=== PATIENT | male | born 1950 | race Caucasian/White ===

== ENCOUNTER 2017-08-05 09:54 | Day surgery (SDC) | payer MEDICARE, OTHER ==
[2017-07-31 22:07] VITALS: BMI 27.1
[~2017-08-05 09:54] MED LIST: LACTATED RINGERS 1,000 ML IV SCH; ONDANSETRON 4 MG/2 ML VIAL IVP PRN
[2017-08-05 11:01] VITALS: RESP 16; TEMP 96.8
[2017-08-05] MEDS ORDERED: LIDOCAINE 1% 20 ML VIAL (10MG/ML) FOR IV START INTRADERMA ONE (11:08)
[2017-08-05] MEDS ORDERED: PROPOFOL 10 MG/ML 20 ML VIAL IV ONE (11:24)
--- NOTE | 2017-08-05 11:50 | P.PCN ---
Date of Procedure: 08/05/17 Procedure(s) Performed: BRIEF HISTORY: Patient is a 67-year-old pleasant white male, scheduled for an elective colonoscopy as a part of evaluation of prior history of colon polyps. Last colonoscopy was 4 years ago. PROCEDURE PERFORMED: Colonoscopy with snare polypectomy. PREOPERATIVE DIAGNOSIS: History of colon polyps. IV sedation per Anesthesia. PROCEDURE: After informed consent was obtained, the patient, was brought into the endoscopy unit. IV sedation was administered by Anesthesia under continuous monitoring. Digital rectal examination was normal. Initially the Olympus CF- 160 flexible video colonoscope was then inserted in the rectum, gradually advanced into the cecum without any difficulty. Careful examination was performed as the scope was gradually being withdrawn. Ileocecal valve and the appendiceal orifice were visualized and appeared normal. Prep was excellent. Mucosa of the cecum, appeared normal. In the ascending colon there were 2 polyps measuring 1 minute in size both of which were removed by snare polypectomy. In the transverse colon there were 2 polyps measuring 5 mm and 1 cm in size removed by snare polypectomy. In the hepatic flexure there was a 5 mL polyp removed with snare polyp ectomy. The rest of the ascending colon, transverse colon, descending colon, sigmoid colon, and rectum appeared normal. In the distal rectum there was a 5 limited polyp removed by snare polypectomy. Retroflexion was performed in the rectum and no lesions were seen. The patient tolerated the procedure well. IMPRESSION: 1 cm 2 ascending colon polyp status post polypectomy 5 mm hepatic flexure polyp status post snare polypectomy 5 mm and 1 cm transverse colon polyp status post snare polypectomy. 5 mm distal rectal polyp status post polypectomy RECOMMENDATIONS: Findings of this examination were discussed with the patient as well as his family. He was advised to follow with the biopsy results. If the biopsy shows a tubular adenoma he can have a repeat colonoscopy in 3 years.
[2017-08-05 12:26] VITALS: BP 135/83; PULSE 58
== END 2017-08-05 12:37 | disposition home or self-care (01) ==
LOC: ORWHC2ENDO 09:54
PROVIDERS: ATTEND Internal Medicine Gastroenterology
DX: Z12.11 Encounter for screening for malignant neoplasm of colon (principal); D12.2 Benign neoplasm of ascending colon; D12.3 Benign neoplasm of transverse colon; D12.8 Benign neoplasm of rectum; Z86.010 Personal history of colon polyps; I10 Essential (primary) hypertension; K21.9 Gastro-esophageal reflux disease without esophagitis; Z79.82 Long term (current) use of aspirin; Z79.899 Other long term (current) drug therapy; Z72.0 Tobacco use
CPT/HCPCS: 88305; 45385; J2704

== ENCOUNTER → 2019-01-10 | Outpatient (CLI) | payer MEDICARE, OTHER ==
--- NOTE | 2019-01-10 08:10 | US ---
EXAMINATION TYPE: US duplex aorta DATE OF EXAM: 01/10/2019 COMPARISON: US 2014 CLINICAL HISTORY: Z13.9 Screening for AAA. EXAM MEASUREMENTS: Abdominal Aorta: Proximal: 2.3 x 2.3 cm Mid: 2.4 x 2.2 cm Distal: 1.8 x 1.9 cm Bifurcation: rt, 1.6 x 1.3 cm lt, 1.4 x 1.7 cm No evidence of abdominal aortic aneurysm. Mild atherosclerosis. IMPRESSION: No sonographic evidence of abdominal aortic aneurysm in the visualized portions of the ab dominal aorta. Mild atherosclerosis is seen throughout.
== END | disposition home or self-care (01) ==
LOC: RADUSWWP 07:29
PROVIDERS: ATTEND Family Medicine
DX: I70.0 Atherosclerosis of aorta (principal)
CPT/HCPCS: 93979

== ENCOUNTER → 2021-04-24 | Outpatient (CLI) | payer MEDICARE, OTHER ==
--- NOTE | 2021-04-24 13:16 | ECHOF ---
Referral Reason:I35.0 Aortic valve stenosis MEASUREMENTS -------- HEIGHT: 182.9 cm WEIGHT: 88.9 kg BP: 141/79 RVIDd: 3.1 cm (< 3.3) IVSd: 1.4 cm (0.6 - 1.1) LVIDd: 4.6 cm (3.9 - 5.3) LVPWd: 1.5 cm (0.6 - 1.1) IVSs: 2.3 cm LVIDs: 3.1 cm LVPWs: 1.9 cm LA Diam: 3.7 cm (2.7 - 3.8) LAESV Index (A-L): 26.61 ml/m Ao Diam: 3.7 cm (2.0 - 3.7) AV Cusp: 2.4 cm (1.5 - 2.6) MV EXCURSION: 16.659 mm (> 18.000) MV EF SLOPE: 64 mm/s (70 - 150) EPSS: 0.5 cm MV E David: 1.13 m/s MV DecT: 285 ms MV A David: 1.05 m/s MV E/A Ratio: 1.07 AV maxP.25 mmHg AV meanP.17 mmHg AR PHT: 577 ms RAP: 5.00 mmHg RVSP: 32.00 mmHg FINDINGS -------- Sinus rhythm. This was a technically adequate study. The left ventricular size is normal. There is moderate concentric left ventricular hypertrophy. O verall left ventricular systolic function is normal with, an EF between 60 - 65 %. The right ventricle is normal in size. The left atrium is normal in size. The right atrium is normal in size. There is mild aortic valve sclerosis. There is mild aortic regurgitation. There is mild aortic st enosis present. Peak/mean gradient across the Aortic Valve is 27.25mmHg / 12.17mmHg. The mitral valve leaflets are mildly thickened. Moderate mitral annular calcification present. Mi ld mitral regurgitation is present. Mild tricuspid regurgitation present. Right ventricular systolic pressure is normal at < 35 mmHg. Trace/mild (physiologic) pulmonic regurgitation. The aortic root size is normal. IVC Not well visulized. There is no pericardial effusion. CONCLUSIONS -------- 1. The left ventricular size is normal. 2. There is moderate concentric left ventricular hypertrophy. 3. Overall left ventricular systolic function is normal with, an EF between 60 - 65 %. 4. There is mild aortic valve sclerosis. 5. There is mild aortic regurgitation. 6. There is mild aortic stenosis present. 7. Peak/mean gradient across the Aortic Valve is 27.25mmHg / 12.17mmHg. 8. The mitral valve leaflets are mildly thickened. 9. Moderate mitral annular calcification present. 10. Mild mitral regurgitation is present. 11. Mild tricuspid regurgitation present. 12. Trace/mild (physiologic) pulmonic regurgitation. 13. There is no pericardial effusion. BLACKJACK DEALER: Ana Sarkar RDCS
== END | disposition home or self-care (01) ==
LOC: RADECHMAIN 11:36
PROVIDERS: ATTEND Family Medicine
DX: I08.8 Other rheumatic multiple valve diseases (principal)
CPT/HCPCS: 93306

== ENCOUNTER → 2021-04-30 | Outpatient (CLI) | payer MEDICARE, OTHER ==
--- NOTE | 2021-04-30 14:22 | US ---
EXAMINATION TYPE: US duplex aorta DATE OF EXAM: 04/30/2021 COMPARISON: 2019 CLINICAL HISTORY: Z13.6 screening for cardiovascular disorders. High blood pressure, controlled high cholesterol, cigar smoker EXAM MEASUREMENTS: Abdominal Aorta: Proximal: 2.9x2.7cm Mid: 2.2x1.6cm Distal: 1.9x1.4cm Bifurcation: 1.2x1.6cm 1.4x1.4cm No AAA seen, some calcified areas noted mid. IMPRESSION: 1. Aorta tapers normally through its visualized course.
== END | disposition home or self-care (01) ==
LOC: RADUSWWP 09:36
PROVIDERS: ATTEND Family Medicine
DX: Z13.6 Encounter for screening for cardiovascular disorders (principal); R03.0 Elevated blood-pressure reading, without diagnosis of hypertension; E78.00 Pure hypercholesterolemia, unspecified; F17.290 Nicotine dependence, other tobacco product, uncomplicated
CPT/HCPCS: 93979

== ENCOUNTER → 2025-02-09 | Outpatient (CLI) | payer MEDICARE ==
--- NOTE | 2025-02-09 08:31 | CT ---
EXAMINATION TYPE: CT chest wo con CT DLP: 478 mGycm, Automated exposure control for dose reduction was used. 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 Lack of IV or o ral contrast limits evaluation of solid and hollow organ viscera. . Coronal and sagittal reformats re viewed. FINDINGS: LUNGS/ PLEURA: No pleural effusion, pneumothorax, or focal consolidation. No clinically significant pulmonary nodule identified. AIRWAY: Patent and unremarkable.. HEART: Size within normal limits.Dense mitral annulus calcifications. Small aortic valvular calcifica tions.. No pericardial effusion. Mild to moderate coronary artery calcifications present. MEDIASTINUM: No gross evidence of adenopathy. VASCULATURE: Ascending fusiform thoracic aortic aneurysm measuring up to 4.3 cm. Bovine aortic arch. MUSCULOSKELETAL: No acute osseous abnormalities. 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 SOFT TISSUES/LYMPH NODES: Bilateral gynecomastia. LOWER NECK: No significant findings. UPPER ABDOMEN: Small hiatal hernia. Right renal simple appearing cyst measuring 1.8 cm. Left renal si mple appearing cyst measuring 3.1 cm. No follow-up recommended. Periampullary duodenal diverticulum. Gallbladder is nonvisualized of the upper abdomen. May be surgically absent. IMPRESSION: 1. No acute thoracic process. No clinically significant pulmonary nodule identified. 2. Ascending thoracic aortic aneurysm measuring up to 4.3 cm. [facility], , 02/09/2025 8:28 AM
== END | disposition home or self-care (01) ==
LOC: RADCTMAIN 07:22
PROVIDERS: ATTEND Family Medicine
DX: I71.21 Aneurysm of the ascending aorta, without rupture (principal); J98.4 Other disorders of lung
CPT/HCPCS: 71250